=== PATIENT | female | born 1985 | race Caucasian/White ===

== ENCOUNTER 2019-06-04 11:12 | Emergency (ER) | payer OTHER, SELFPAY ==
[2019-06-04 11:14] VITALS: BP 169/103; PULSE 85; RESP 17; TEMP 36.8; O2SAT 96; BMI 31.1
--- NOTE | 2019-06-04 11:59 | EKG12_ITS ---
Test Reason : CP Blood Pressure : / mmHG Vent. Rate : 070 BPM Atrial Rate : 070 BPM P-R Int : 142 ms QRS Dur : 092 ms QT Int : 416 ms P-R-T Axes : 041 -07 009 degrees QTc Int : 449 ms Normal sinus rhythm Normal ECG Confirmed by LOU MALDONADO ([id number]), metropolitan editor JAMIE PRATT ([id number]) on 06/06/2019 3:22:00 PM Referred By: DALTON Confirmed By:LOU MALDONADO
--- NOTE | 2019-06-04 11:59 | RAD_ITS ---
STUDY: X-RAY CHEST REASON FOR EXAM: Female, 33 years old. Chest pain. Nausea. TECHNIQUE: Single AP portable view of the chest. COMPARISON: None. FINDINGS: EKG electrodes are seen. The lungs are clear and expanded. There is no demonstrated pleural abnormality. Normal size heart. Normal mediastinum and paresh. Normal visualized pulmonary arteries. Normal visualized aortic arch and descending thoracic aorta. Normal visualized thoracic spine. Normal visualized ribs, clavicles, and shoulders. There is no demonstrated abnormality of the visualized soft tissue structures of the upper abdomen. RAD/Chest 1 View (Portable) IMPRESSION: Normal x-ray examination of the chest. Electronically Signed: Anant Yusuf, at 12:30 EDT , Service support ,
--- NOTE | 2019-06-04 12:02 | ED.DCSUM_ITS ---
- ER Visit Summary Date of Service: 06/04/19 Chief Complaint: [Chest pain] History of Present Illness: The patient is a 33 F [presents to the emergency department chest discomfort that she states started 2 days ago. Patient complains of a tightness and a pressure in the center of her chest. Discomfort seems to be worse with activity and exertion. Patient also has the sensation after some stuck in her throat. Patient has not had discomfort like this before. She has had history of anxiety in the past but does not take any medications for it. Patient has history of hypertension. There is no family history of coronary artery disease. Patient does not smoke. She denies any illicit drug use. She did have a recent travel to [place] at the beginning of March.] Physical Examination: [HEENT-PERRLA, EOMI. Cranial nerves II through XII grossly intact. TMs clear. Mucous membranes moist. No adenopathy. Cardiovascular-regular rate and rhythm without murmur or ectopy Lungs-clear to auscultation, chest wall stable without crepitus or subcu emphysema Abdomen-normoactive bowel sounds, soft, nontender, no rebound or rigidity, no peritoneal signs. Extremities-intact ?4, normal range of motion, normal pulses, atraumatic Test Results: [EKG obtained on arrival shows sinus rhythm with a ventricular rate of 70 bpm with no acute segment changes. CBC with differential showed a white count of 6.4, hemoglobin 13.8, hematocrit 39, placed 266. Chemistries unremarkable. Troponin is less than 0.15. D-dimer was 0.69. TSH was 1.77. Chest x-ray showed nothing acute. CTA of the chest was negative for PE or dissection.] Emergency Department Course and Treatment: [Refused any medication for anxiety.] Treatment Plan: [My suspicion for cardiac etiology is very low given the patient has had continuous discomfort for several days. Patient has low risk profile for acute coronary artery disease.] I will write patient a prescription for metoprolol which she asked me to write for as she has run out for her hypertension. Disposition: [Discharged home stable condition.] Impression: [Chest pain-etiology uncertain] This note was generated with [employer] software. It may contain incorrect words, spelling, and punctuation that were not noted in review of the chart prior to signing ED Disposition - Plan for ED Patient: Referrals: August Rosenthal DO [Primary Care Provider] -
[2019-06-04 12:06] VITALS: O2SAT 99
[2019-06-04 12:12] VITALS: BP 158/110; PULSE 82; RESP 16; O2SAT 98
[2019-06-04] MEDS: Aspirin 81 MG TAB.CHEW 324 MG PO (12:13)
[2019-06-04] MEDS: 0.9% Normal Saline 1,000 ML 150 ML IV (12:19)
[2019-06-04 12:32] LABS: Absolute Lymphocyte Count 2.29 X10^3/uL (0.83-4.51); Absolute Neutrophil Count 3.6 X10^3/uL (2.0-7.7); Basophil# 0.02 X10^3/uL; Basophil% 0.3 % (0-1); Eosinophil# 0.06 X10^3/uL; Eosinophils% 0.9 % (0-5); Hemoglobin 13.8 g/dL (12.0-15.0); Lymphocyte # 2.29 X10^3/ul (4.0); Lymphocyte % 35.6 % (19-41); Mean Corp Hgb Conc 35.4 g/dL (32-36); Mean Corpuscular Hgb 32.1 pg (27.0-32.0); Mean Corpuscular Volume 90.7 fL (81-99); Mean Platelet Vol. 9.6 fl (6.2-12.0); Monocyte# 0.47 X10^3/uL; Monocyte% 7.3 % (0-10); NRBC Flagged by Analyzer 0 % (0-5); Neutrophil # 3.59 X10^3/uL (2.7-7.7); Neutrophil % 55.7 % (47-70); Platelet Count 266 K/mm3 (150-450); RBC Distribution Width CV 11.6 % (11.6-14.6); RBC Distribution Width SD 38.3 fl (35.1-43.9); White Blood Count 6.4 K/mm3 (4.4-11.0)
[2019-06-04 12:45] LABS: D-Dimer Quantitative (DVT/PE) 0.69 FEU/ug/m (0.27-0.49)
--- NOTE | 2019-06-04 12:47 | ED.RN ---
LAB CALLED WITH CRITICAL RESULT D DIMER OF 0.69. VERBALLY REPORTED TO BETTY STEARNS AND DR. WATSON.
[2019-06-04 12:51] LABS: Anion Gap 4 (5-15); BUN 7 mg/dL (7-18); Chloride 107 mmol/L (98-107); EST Glomerular Filtration Rate 101 mL/min (>60); Est Glom Filt Rate - Afr Amer 122 mL/min (>60); Estimated Creatinine Clearance 88.72 ml/min; Glucose 75 mg/dL (74-106); Potassium 3.6 mmol/L (3.5-5.1); Sodium Level 140 mmol/L (136-145); Thyroid Stim Hormone (TSH) 1.77 uIU/mL (0.358-3.74)
--- NOTE | 2019-06-04 13:05 | CT_ITS ---
STUDY: CTA CHEST REASON FOR EXAM: Female, 33 years old. Chest discomfort. RADIATION DOSAGE (If Supplied By Facility): CTDIvol = ( 11.00 ) mGy, DLP = ( 415.42 ) mGycm TECHNIQUE: The examination was performed with the intravenous administration of 75ML IV Isovue 370. Post-processing of the angiographic images was performed, with multiplanar reformation and 3D reconstruction. Individualized dose optimization techniques were used for this CT. COMPARISON: None. FINDINGS: Normal enhancement of the main pulmonary artery and right and left pulmonary arteries. Normal enhancement of the bilateral peripheral pulmonary arteries. There is no demonstrated pulmonary embolism. Normal thoracic aorta and visualized great vessels. There is no demonstrated aortic dissection. Normal heart and pericardium. Normal mediastinum. Normal hilar regions. Normal visualized trachea and bronchi. The lungs are well expanded. Normal pulmonary parenchyma. Normal pleura. Normal chest wall structures. Normal osseous structures. Normal visualized upper abdomen. CT/CTA Chest W/WO Contrast IMPRESSION: Normal CTA chest examination, without a demonstrated pulmonary embolism or arterial dissection. Electronically Signed: Anant Yusuf, at 14:28 EDT , Service support ,
[2019-06-04 13:15] VITALS: BP 127/104; PULSE 83; RESP 17; O2SAT 98
[2019-06-04] MEDS: Acetaminophen 500 MG Tablet 1000 MG PO (13:22)
[2019-06-04 15:51] VITALS: PULSE 81; RESP 14; O2SAT 98
--- NOTE | 2019-06-04 15:51 | ED.DEP ---
ED Disposition - Plan for ED Patient: Instructions: CHEST PAIN, Uncertain Cause Prescriptions: Metoprolol Tartrate 25 mg PO BID #60 tab Prescription Printed Referrals: August Rosenthal DO [Primary Care Provider] - 3-5 Days
[2019-06-04 15:58] VITALS: BP 133/98; PULSE 77; RESP 17; O2SAT 100
--- NOTE | 2019-06-04 15:58 | ED.RN ---
IV DC'ED, CATHETER INTACT, SMALL GAUZE DRESSING PLACED. DISCHARGE INSTRUCTIONS GIVEN TO AND REVIEWED WITH PATIENT, PATIENT DENIES QUESTIONS OR CONCERNS AND VOICES UNDERSTANDING OF DISCHARGE INSTRUCTIONS. PT AMBULATES OUT OF ROOM WITHOUT DIFFICULTY.
== END 2019-06-04 15:59 | disposition home or self-care (01) ==
LOC: ED 12:12
PROVIDERS: Emergency Provider Emergency Medicine; Family Provider Student in an Organized Health Care Education/Training Program; PCP Student in an Organized Health Care Education/Training Program
DX: R07.89 Other chest pain (principal); R06.00 Dyspnea, unspecified; I10 Essential (primary) hypertension; F41.9 Anxiety disorder, unspecified; Z79.899 Other long term (current) drug therapy
CPT/HCPCS: 71045; 71275; 80048; 84443; 84484; 85025; 85379; 93005; 96360; 96361; 99285; Q9967